=== PATIENT | female | born 1990 | race African-American/Black ===

== ENCOUNTER 2019-01-16 13:14 | Emergency (ER) | payer MEDICAID, OTHER ==
[~2019-01-16] VITALS: Ht 162.6 cm; Wt 75.7 kg
[~2019-01-16 13:14] MED LIST: AUGMENTIN 875-1 EAC1 ORAL
[2019-01-16 13:29] VITALS: BP 108/66
--- NOTE | 2019-01-16 13:29 | NUR ---
ED Nurse Note: pt walked in due to pain on the right shoulder and upper back and left elbow. pt denies trauma. denies taking meds. pt able to give urine sample and was sent to lab. seen by robbie archer. will continue to monitor.
[2019-01-16 13:42] LABS: APPEARANCE,URINE CLEAR; BILIRUBIN, URINE NEGATIVE (NEGATIVE); COLOR,URINE PALE YELLOW; GLUCOSE, URINE (UA) NEGATIVE (NEGATIVE); KETONES,URINE NEGATIVE (NEGATIVE); LEUKOCYTE ESTERASE ,URINE 2+ (NEGATIVE); NITRITE,URINE NEGATIVE (NEGATIVE); PH,URINE 5 (4.5-8.0); PROTEIN,URINE NEGATIVE (NEGATIVE); UROBILINOGEN,URINE NORMAL MG/DL (0.0-1.0)
--- NOTE | 2019-01-16 14:07 | NUR ---
ED Nurse Note: pt went to xray with tech
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
[2019-01-16] MEDS ORDERED: VOLTAREN100 G1 TP (14:38)
[2019-01-16] MEDS ORDERED: FLUCONAZOLE100 MG ORAL (14:38)
[2019-01-16] MEDS ORDERED: METRONIDAZOLE500 MG ORAL (14:38)
[2019-01-16] MEDS ORDERED: NAPROXEN500 M2 ORAL (14:38)
[2019-01-16 14:45] VITALS: BP 108/66
--- NOTE | 2019-01-16 14:45 | NUR ---
ER DISCHARGE NOTE: Patient is cleared to be discharged per ERMD, pt is aox4, on room air, with stable vital signs. pt was given dc and prescription instructions, pt was able to verbalize understanding, pt id band removed without complications. pt is able to ambulate with steady gait. pt took all belongings.
--- NOTE | 2019-01-17 12:47 | Diagnostic Imaging Report ---
Indication: Back pain Comparison: None Findings: 2 views of the thoracic spine were obtained. Normal alignment is demonstrated. Vertebral body heights and intervertebral disc heights are normal. The posterior elements including the facets are unremarkable. Soft tissues are unremarkable. Impression: No acute injury appreciated.
--- NOTE | 2019-01-17 12:47 | Diagnostic Imaging Report ---
Indication: Pain Findings: 3 views of the left elbow were obtained. No acute fractures, malalignment, erosions or periostitis are identified. Soft tissues are unremarkable. Impression: No acute injury
== END 2019-01-16 14:45 | disposition home or self-care (01) ==
LOC: EMR 14:30
DX: M77.12 Lateral epicondylitis, left elbow (principal); S29.012A Strain of muscle and tendon of back wall of thorax, initial encounter; A59.9 Trichomoniasis, unspecified; X58.XXXA Exposure to other specified factors, initial encounter; Y92.9 Unspecified place or not applicable; Z88.6 Allergy status to analgesic agent
CPT/HCPCS: 72070; 81001; 81025; 99284

== ENCOUNTER 2019-01-22 05:08 | Emergency (ER) | payer OTHER ==
[~2019-01-22] VITALS: Ht 162.6 cm; Wt 77.1 kg
[~2019-01-22 05:08] MED LIST changes: +FLUCONAZOLE100 MG ORAL; +METRONIDAZOLE500 MG ORAL; +NAPROXEN500 M2 ORAL; +VOLTAREN100 G1 TP
[2019-01-22 05:30] VITALS: BP 119/72
--- NOTE | 2019-01-22 05:45 | NUR ---
ER Nurse Note: Pt came from home c/o right wrist lac from broken glass while washing dishes at 2300 01/21. Laceration vertical, deep, no active bleeding. Denies taking pain meds, 05/05 pain.
--- NOTE | 2019-01-22 06:07 | Emergency Room Report ---
History of Present Illness General Chief Complaint: Laceration Source: Patient Present Illness HPI The patient cut her right wrist washing dishes at 11:00 last night. She thought it would do okay on its own but saw it this morning and felt that it needed further care. There is minimal bleeding at the time. She cleaned it and dressed it. Her last tetanus was 3 to 4 years ago. She rates the pain 10/ 10, sharp and aching and constant without radiation. She denies numbness. She has full range of motion of her hand. She denies diabetes or major medical problems. She smoked marijuana before coming in. Allergies: Coded Allergies: ACETAMINOPHEN (Verified Allergy, Mild, 01/22/19) HYDROCODONE (Verified Allergy, Mild, 03/03/16) Patient History Past Medical History: see triage record Social History: Reports: smoking, drug use - THC Social History Narrative Cares for her child Reviewed Nursing Documentation: PMH: Agreed; PSxH: Agreed Review of Systems Constitutional: Denies: fever Musculoskeletal: Reports: see HPI Skin: Reports: see HPI Neurological: Reports: see HPI Hematologic/Lymphatic: Reports: see HPI Physical Exam Vital Signs Date Time Temp Pulse Resp B/P (MAP) Pulse Ox O2 Delivery O2 Flow Rate FiO2 01/22/19 05:14 98.2 88 18 119/72 (88) 98 Room Air Sp02 EP Interpretation: reviewed, normal General Appearance: well appearing, no apparent distress, GCS 15 Head: normocephalic, atraumatic Eyes: bilateral eye PERRL, bilateral eye Scleral Injection ENT: hearing grossly normal, normal voice, moist mucus membranes Neck: full range of motion, supple Respiratory: no respiratory distress, speaking full sentences Cardiovascular #1: regular rate, rhythm Cardiovascular #2: 2+ radial (R) - Distal capillary refill normal Gastrointestinal: normal inspection Musculoskeletal: digits/nails normal, gait/station normal, normal range of motion Neurologic: alert, oriented x3, grossly normal Psychiatric: mood/affect normal Skin: laceration - Right volar surface of the wrist Procedures Laceration/Wound Repair Laceration/Wound Repair : Consent: Verbal Wound Location: upper extremity Wound's Depth, Shape: superficial, flap Wound Length (cm): 4 Wound Explored: clean Irrigated w/ Saline (ccs): 500 Betadine Prep?: Yes Anesthesia: 1% Lidocaine Wound Debrided: minimal Wound Repaired With: sutures Suture Size/Type: 5:0, proline Layer Closure?: Yes Deep Layer Suture Size/Type: 5:0, other - Vicryl Sterile Dressing Applied?: Yes Splint Applied?: No Patient Tolerated: Well Complications: None Progress Betadine prep. Local anesthesia. Wound debridement. Wound irrigated. Subcuticular approximation with Vicryl. Irrigation again. Dermal closure with Prolene with good approximation. Medical Decision Making Diagnostic Impression: Primary Impression: Laceration of right wrist Qualified Codes: S61.511A - Laceration without foreign body of right wrist, initial encounter ER Course Laceration of the right forearm. Nearly late presentation however need sutures as it is a gaping wound. As its slightly late the Keflex is indicated. Tetanus is up-to-date. See procedure note. Patient tolerated the procedure well. There is no pain after anesthesia. Discussed treatment plan with patient with caution about possible wound infection. Patient stable for outpatient observation and treatment. Status: improved Disposition: HOME, SELF-CARE Condition: Improved Scripts Bacitracin (Bacitracin) 28.4 Gm Oint...g. 1 APPLIC TOPIC BID, #20 GM Prov: Jesús Spence MD 01/22/19 Ibuprofen* (MOTRIN*) 600 Mg Tablet 600 MG ORAL Q6H PRN for For Pain, #20 TAB 0 Refills Prov: Jesús Spence MD 01/22/19 Cephalexin* (KEFLEX*) 500 Mg Capsule 500 MG ORAL EVERY 6 HOURS, #28 CAP Prov: Jesús Spence MD 01/22/19 Jesús Spence MD Jan 22, 2019 06:07
[2019-01-22] MEDS ORDERED: Lidocaine 1% MPF 10mg/ml 5ml ONE (06:10)
[2019-01-22] MEDS ORDERED: Cephalexin 500mg cap ORAL ONE (06:15)
[2019-01-22] MEDS ORDERED: Lidocaine 1% MPF 10mg/ml 5ml INJ ONE (06:15)
[2019-01-22] MEDS ORDERED: Bacitracin Oint UD TOPIC ONE ×2 (06:15→06:23)
[2019-01-22] MEDS ORDERED: Cephalexin 250mg Cap ONE (06:23)
[2019-01-22] MEDS ORDERED: Cephalexin 500mg cap ONE (06:31)
[2019-01-22] MEDS ORDERED: IBUPROFEN600 MG ORAL (06:42)
[2019-01-22] MEDS ORDERED: BACITRACIN15 GM TOPIC (06:42)
[2019-01-22] MEDS ORDERED: CEPHALEXIN500 MG ORAL (06:42)
--- NOTE | 2019-01-22 06:54 | NUR ---
ER Nurse Note: Sutures completed by ERMD. All orders completed per ERMD orders. Laceration cleaned and bacetracin applied to wound; wrapped with kerlex. Pt tolerated well. Pt ready for discharge.
[2019-01-22 06:55] VITALS: BP 136/82
--- NOTE | 2019-01-22 06:55 | NUR ---
ER Nurse Note: Pt seen, treated, medically cleared for discharge by ERMD. Discharge instuctions and prescriptions given with repeat verbalization by pt. Wound care teaching provided. Extra supplies provided. Informed pt to come back within 8-10 days for suture removal. All orders completed per ERMD orders. Pt a&ox4, VSS, no signs of distress. ID band removed. Pt ambulaitory with steady gait, left with all belongings, left with own transportation.
[2019-01-22] MEDS ORDERED: FLUCONAZOLE100 MG ORAL (13:50)
[2019-01-22] MEDS ORDERED: METRONIDAZOLE500 MG ORAL (13:50)
[2019-01-22] MEDS ORDERED: NAPROXEN500 M2 ORAL (13:50)
[2019-01-22] MEDS ORDERED: VOLTAREN100 G1 TP (13:50)
== END 2019-01-22 06:55 | disposition home or self-care (01) ==
LOC: EMR 06:09
DX: S61.511A Laceration without foreign body of right wrist, initial encounter (principal); Z88.6 Allergy status to analgesic agent; W45.8XXA Other foreign body or object entering through skin, initial encounter; Y93.G1 Activity, food preparation and clean up; Y92.9 Unspecified place or not applicable
CPT/HCPCS: 12001; 99283; Z7502

== ENCOUNTER 2019-01-30 17:09 | Emergency (ER) | payer OTHER ==
[~2019-01-30] VITALS: Ht 165.1 cm; Wt 80.3 kg
[~2019-01-30 17:09] MED LIST changes: +BACITRACIN15 GM TOPIC; +CEPHALEXIN500 MG ORAL; +IBUPROFEN600 MG ORAL
[2019-01-30] MEDS ORDERED: NKM (17:27)
--- NOTE | 2019-01-30 17:51 | NUR ---
Jaylen stark in EDM - 01/30/19 at 1752 by BENIGNO ED Nurse Note: report given to Mayito OLIVAS at [facility].
--- NOTE | 2019-01-30 17:53 | NUR ---
ED Nurse Note: Pt came in from home for suture removal, procedure done on 01/22/19. Pain 3/10 evelyn. Site is clean, dry, no swelling noted. AOx4, VSS. Will cont to monitor.
[2019-01-30 18:00] VITALS: BP 122/74
[2019-01-30] MEDS ORDERED: Bacitracin Oint UD TOPIC ONE (18:15)
[2019-01-30 18:18] VITALS: BP 122/74
--- NOTE | 2019-01-30 18:18 | NUR ---
ER DISCHARGE NOTE: Patient is cleared to be discharged per ERMD, pt is aox4, on room air, with stable vital signs. pt was given dc and prescription instructions, pt was able to verbalize understanding, pt id band removed. pt is able to ambulate with steady gait. pt took all belongings.
--- NOTE | 2019-01-30 21:01 | Emergency Room Report ---
History of Present Illness General Chief Complaint: Wound Recheck/Suture Removal Source: Patient Present Illness [facility] The patient is a 28-year-old female presenting for wound check and suture removal. She was seen in this emergency department 1 week prior for right wrist laceration. She states that she has been keeping the area clean and dry. No bleeding or other discharge. She denies other symptoms including rash, fever, chills Allergies: Coded Allergies: ACETAMINOPHEN (Verified Allergy, Mild, 01/22/19) HYDROCODONE (Verified Allergy, Mild, 03/03/16) Patient History Past Medical History: see triage record Pertinent Family History: none Now: No Reviewed Nursing Documentation: PMH: Agreed; PSxH: Agreed Nursing Documentation-PMH Past Medical History: No History, Except For Review of Systems All Other Systems: negative except mentioned in HPI Physical Exam Vital Signs Date Time Temp Pulse Resp B/P (MAP) Pulse Ox O2 Delivery O2 Flow Rate FiO2 01/30/19 17:23 97.9 99 18 123/88 (100) 99 Room Air Sp02 EP Interpretation: reviewed, normal General Appearance: no apparent distress, alert, GCS 15, non-toxic Head: normocephalic, atraumatic Musculoskeletal: back normal, gait/station normal, normal range of motion Neurologic: alert, oriented x3, responsive, motor strength/tone normal, sensory intact, speech normal Psychiatric: judgement/insight normal, memory normal, mood/affect normal, no suicidal/homicidal ideation Skin: other - R wrist volar surface has sutures in place Medical Decision Making PA Attestation Dr. Spence is my supervising physician. Patient management was discussed with my supervising physician Diagnostic Impression: Primary Impression: Encounter for removal of sutures ER Course The patient is a 28-year-old female presenting for wound check and suture removal DDx considered but not limited to: cellulitis, wound dehiscence, non healing wound, among others PE: Afebrile. NAD R wrist sutures in place. No erythema. No bleeding Suture removal: All simple interrupted sutures were removed without complication. No bleeding or discharge. Wound is well approximated. No surrounding erythema. Keep area clean and dry. F/U with PCP Last Vital Signs Date Time Temp Pulse Resp B/P (MAP) Pulse Ox O2 Delivery O2 Flow Rate FiO2 01/30/19 18:18 97.9 87 20 122/74 99 Room Air Status: improved Disposition: HOME, SELF-CARE Condition: Improved Referrals: NON PHYSICIAN (PCP) Patient Instructions: Suture Removal, Care After Additional Instructions: I discussed my findings with the patient. All questions and concerns have been answered. Treatment and medication compliance have been addressed. I advised the patient that they need to follow up with PMD in 3-5 days. Return to ED if symptoms worsen, new symptoms arise, or if needed for any reason. Patient verbalized understanding of discharge instructions. MIGUEL RICHARDS Jan 30, 2019 21:01
== END 2019-01-30 18:18 | disposition home or self-care (01) ==
LOC: EMR 17:53
DX: S61.511D Laceration without foreign body of right wrist, subsequent encounter (principal); X58.XXXD Exposure to other specified factors, subsequent encounter; Z88.6 Allergy status to analgesic agent; Z48.02 Encounter for removal of sutures
CPT/HCPCS: 99282

== ENCOUNTER 2019-03-07 21:21 | Emergency (ER) | payer OTHER ==
[~2019-03-07] VITALS: Ht 165.1 cm; Wt 77.1 kg
[~2019-03-07 21:21] MED LIST changes: +NKM
[2019-03-07 21:55] VITALS: BP 130/82
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
[2019-03-07] MEDS ORDERED: Ketorolac 60mg Inj IM ONE (22:15)
[2019-03-07] MEDS ORDERED: IBUPROFEN600 MG ORAL (22:54)
[2019-03-07 23:05] VITALS: BP 118/74
--- NOTE | 2019-03-07 23:05 | NUR ---
ER DISCHARGE NOTE: Patient is cleared to be discharged per ERMD, pt is aox4, on room air, with stable vital signs. pt provided with sling for injury; verbalized and returned demonstrated understanding of sling. pt was given dc and prescription instructions, pt was able to verbalize understanding, pt id band removed. pt is able to ambulate with steady gait. pt took all belongings.
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
== END 2019-03-07 23:05 | disposition home or self-care (01) ==
LOC: EMR 22:07
DX: S40.011A Contusion of right shoulder, initial encounter (principal); Z88.6 Allergy status to analgesic agent; Y09 Assault by unspecified means
CPT/HCPCS: 96372; 99283